=== PATIENT | male | born 1985 | race Caucasian/White ===

== ENCOUNTER 2017-01-09 08:24 | Emergency (ER) | payer BC ==
[2017-01-09] MEDS ORDERED: Diphtheria,Pertussis(Acell),Tetanus Vaccine 0.5 ML Syringe IM ONE (08:40)
[2017-01-09] MEDS ORDERED: Bacitracin Oint 1 GM U/D Packet TOP ONE (08:46)
--- NOTE | 2017-01-09 08:46 | EDM.PDOC ---
ED HPI GENERAL MEDICAL PROBLEM - General Chief Complaint: Lower Extremity Injury/Pain Stated Complaint: RIGHT LEFT IN PAIN Time Seen by Provider: 01/09/17 08:39 - History of Present Illness INITIAL COMMENTS - FREE TEXT/NARRATIVE: HISTORY AND PHYSICAL: History of present illness: Patient is a 31-year-old male who presents with complaints of a poorly healing wound to his right anterior cunningham that is been ongoing for the last 1-1/2 weeks. According to the patient he tripped at work and hit the area on a metal stair about 1-1/2 weeks ago and had a wound there which he is been caring for at home religiously. He noticed 2 other small pustules pop up laterally to the wound which he popped and was concerned that the entire area was looking more infected. He has some discomfort to the area is not excessive and he has no streaking up the leg no swelling of the leg and no neurovascular changes in the leg. He had no other injuries. He has no systemic complaints of fever chills chest pain or shortness of breath and has been eating and drinking normally. Patient is unsure of his last tetanus shot Review of systems: As per history of present illness and below otherwise all systems reviewed and negative. Past medical history: As per history of present illness and as reviewed below otherwise noncontributory. Surgical history: As per history of present illness and as reviewed below otherwise noncontributory. Social history: No reported history of drug or alcohol abuse. Family history: As per history of present illness and as reviewed below otherwise noncontributory. Physical exam: Gen.: Well-developed well-nourished man who is nontoxic and afebrile here in the ED. He related into the ED without assistance HEENT: Atraumatic, normocephalic, negative for conjunctival pallor or scleral icterus, mucous membranes moist, throat clear, neck supple, nontender, trachea midline. Lungs: Clear to auscultation, breath sounds equal bilaterally, chest nontender. Heart: S1S2, regular rate and rhythm no overt murmurs. Abdomen: Soft, nondistended, nontender. NABS Skin: Normal turgor no diaphoresis wound as described below Genitourinary: Deferred. Rectal: Deferred. Extremities: Atraumatic except for the right lower extremity as described, negative for cords or calf pain. Neurovascular unremarkable. At the anterior aspect of the right lower extremity over the anterior tibial area there is an irregularly shaped open wound with surrounding somewhat macerated tissue which is not weeping and not fluctuant nor draining and minimally tender. There are 2 other small circular areas just laterally and superior to the wound with the patient indicates where the pustules that he popped. Again this once have no fluctuance no drainage but do have erythema. The calf itself is not swollen and there is no bony tenderness. There is no distal or proximal redness or streaking. Neuro: Awake, alert, oriented. Cranial nerves II through XII unremarkable. Cerebellum unremarkable. Motor and sensory unremarkable throughout. Exam nonfocal. Diagnostics: X-ray right tib-fib Therapeutics: Tdap, wound care I discussed with the patient that he's been doing a good job with keeping the wound cleaned but he has been covering them with occlusive dressings which is making the wound somewhat moist and delaying wound healing. We will advise open to air when at home and dry gauze breathable dressings when he is at work. We' ll place him on antibiotics and referred to primary care for follow-up. Impression: Right lower leg wound with cellulitis Definitive disposition and diagnosis as appropriate pending reevaluation and review of above. Leg Pain Score (Numeric/FACES): 2 - Related Data Allergies Allergy/AdvReac Type Severity Reaction Status Date / Time No Known Allergies Allergy Verified 01/09/17 08:38 Review of Systems - Review of Systems Review Of Systems: ROS reveals no pertinent complaints other than HPI. ED EXAM, GENERAL - Physical Exam Exam: See Below (See dictation) Course - Vital Signs Last Recorded V/S: Last Vital Signs Temp 37.1 C 01/09/17 08:35 Pulse 80 01/09/17 08:35 Resp 18 01/09/17 08:35 BP 137/80 01/09/17 08:35 Pulse Ox 97 01/09/17 08:35 - Orders/Labs/Meds Orders: Active Orders 24 hr Category Date Time Status Vaccines to be Administered [RC] PER UNIT ROUTINE Care 01/09/17 08:40 Active Tibia Fibula Rt [CR] Stat Exams 01/09/17 08:40 Taken Meds: Medications Discontinued Medications Generic Name Dose Route Start Last Admin Trade Name Freq PRN Reason Stop Dose Admin Bacitracin 1 dose 01/09/17 08:46 Bacitracin Oint 1 Gm TOP 01/09/17 08:47 ONETIME ONE Diphtheria/Tetanus/Acell Pertussis 0.5 ml 01/09/17 08:40 01/09/17 08:55 Adacel IM 01/09/17 08:41 0.5 ml .ONCE ONE Administration Departure - Departure Time of Disposition: 09:09 Disposition: Home, Self-Care 01 Condition: Good Clinical Impression: Leg wound, right Qualifiers: Encounter type: initial encounter Qualified Code(s): S81.801A - Unspecified open wound, right lower leg, initial encounter Cellulitis of leg Qualifiers: Laterality: right Qualified Code(s): L03.115 - Cellulitis of right lower limb - Discharge Information Referrals: PCP,None [Primary Care Provider] - Forms: ED Department Discharge Additional Instructions: The following information is given to patients seen in the emergency department who are being discharged to home. This information is to outline your options for follow-up care. We provide all patients seen in our emergency department with a follow-up referral. The need for follow-up, as well as the timing and circumstances, are variable depending upon the specifics of your emergency department visit. If you don't have a primary care physician on staff, we will provide you with a referral. We always advise you to contact your personal physician following an emergency department visit to inform them of the circumstance of the visit and for follow-up with them and/or the need for any referrals to a consulting specialist. The emergency department will also refer you to a specialist when appropriate. This referral assures that you have the opportunity for followup care with a specialist. All of these measure are taken in an effort to provide you with optimal care, which includes your followup. Under all circumstances we always encourage you to contact your private physician who remains a resource for coordinating your care. When calling for followup care, please make the office aware that this follow-up is from your recent emergency room visit. If for any reason you are refused follow-up, please contact the [facility] emergency department at and ask to speak to the emergency department charge nurse. [facility] Primary care- Internal Medicine and Family [address] [address] Please cleanse the area with mild soap and water pat dry and apply bacitracin or Neosporin but leave open to air when you're at home and only use gauze dressing when you're at work. Please take antibiotics--Bactrim-- until they're finished. Please call and follow-up with one of our providers in the clinic for reevaluation of the care plan and further intervention as needed. Return to ER as needed and as discussed. Use [id number] ibuprofen or Tylenol for any discomfort - My Orders Last 24 Hours: My Active Orders 01/09/17 08:40 Vaccines to be Administered [RC] PER UNIT ROUTINE Tibia Fibula Rt [CR] Stat - Assessment/Plan Last 24 Hours: My Active Orders 01/09/17 08:40 Vaccines to be Administered [RC] PER UNIT ROUTINE Tibia Fibula Rt [CR] Stat
[2017-01-09 09:38] VITALS: BP 134/68
--- NOTE | 2017-01-10 14:35 | CR ---
EXAM DATE: 01/09/17 PATIENT'S AGE: 31 Patient: ROBI VIRK Facility: [place] Site . Site : [id number] Study: XRay Extremity Right [id number] 8:54:40 AM Ordering Physician: Elina Sanchez Final Report: INDICATION: Right leg abrasion. Right leg red and swollen. TECHNIQUE: Two views of the right tibia and fibula. COMPARISON: None. FINDINGS: Apparent soft tissue swelling anteriorly. No fracture or other abnormality. IMPRESSION: Negative right tibia and fibula except for apparent soft tissue swelling anteriorly. Dictated by Carter Mcnally MD @ Jan 09 2017 9:02AM (Electronic Signature) Report Signed by Proxy. CORRINE
== END 2017-01-09 09:36 | disposition home or self-care (01) ==
LOC: MW.ED 08:24
DX: S81.801A Unspecified open wound, right lower leg, initial encounter (principal); L03.115 Cellulitis of right lower limb; X58.XXXA Exposure to other specified factors, initial encounter; Z23 Encounter for immunization
CPT/HCPCS: 73590-26-RT; 73590-RT; 90471; 90715; 99282; 99283-25